=== PATIENT | male | born 1970 ===

== ENCOUNTER 2017-09-05 08:03 | Outpatient (CLI) | payer BC ==
--- NOTE | 2017-09-05 08:40 | XRay Report ---
RIGHT SHOULDER RADIOGRAPHS INDICATION: Right shoulder pain. COMPARISON: None similar at this institution. FINDINGS: Frontal and Y views of the right shoulder, 3 projections demonstrate normal humeral head contour, well positioned against the glenoid. Intact acromioclavicular joint with mild degenerative changes. Preserved scapular contour. Normal visualized soft tissues, right ribs and lung. CONCLUSION: Mild right AC joint arthropathy not excluded without other acute radiographic abnormality, as described. Please correlate. Thank you for the opportunity to participate in this patient's care.
== END 2017-09-05 08:04 | disposition home or self-care (01) ==
LOC: SPVIMAG 08:03
PROVIDERS: ATTEND Orthopaedic Surgery
DX: M25.511 Pain in right shoulder (principal); M12.811 Other specific arthropathies, not elsewhere classified, right shoulder